=== PATIENT | male | born 1970 | race African-American/Black ===

== ENCOUNTER 2024-09-19 16:53 | Inpatient (IN) ==
--- NOTE | 2024-09-19 17:15 | Emergency Department Note ---
ED DC CONDITION Conditon at Discharge Condition at Discharge: Fair Impression & Plan Syncope and collapse, Cardiac dysrhythmia, Non-ST elevation MA (NSTEMI), Defibrillator discharge ED Provider Note HISTORY OF PRESENT ILLNESS: Patient is a 54-year-old male presenting after an episode of syncope. Patient has a defibrillator in place and he was conducting acquire when he suddenly got shocked 4 times by his defibrillator. Reports that he then passed out, but friends were able to help him to the ground. Patient did not lose consciousness or hit his head. He denies any chest pain or shortness of breath. He reports that he is originally from [place] and the defibrillator was placed after he had passed out on a flight. He is not on any anticoagulation or antiplatelet therapy. Denies any abdominal pain, nausea or vomiting. He reports he feels at his baseline at this time. ROS: as above PHYSICAL EXAM: Constitutional: Patient appears in no acute distress. HENT: Head: Normocephalic and atraumatic. Eyes: EOMI, PERRL Mouth/Throat: Mucous membranes moist. Neck: Trachea midline. Neck supple. Cardiovascular: Tachycardic with regular rhythm. No murmurs, rubs or gallops. Intact distal pulses. Pulmonary/Chest: No respiratory distress. Breath sounds clear and equal bilaterally. No wheezes or rales. Abdominal: Abdomen soft, no tenderness, rebound or guarding. Musculoskeletal: No edema, tenderness or deformity noted. Skin: Warm and dry. No rash, erythema, pallor or cyanosis Psychiatric: Appropriate mood and affect for situation. Neurological: Alert and keenly responsive. CN II-XII grossly intact, moving all extremities equally and fully. MDM: - Vitals signs showed hypertension and tachycardia. - History obtained via patient. History as above. - Chronic conditions affecting care: HTN; HLD; pacemaker in place - Differential diagnoses include, but are not limited to: Acute coronary syndrome; pulmonary embolism; dissection; tension pneumothorax; esophageal rupture; pneumonia; dysrhythmia - Order placed for continuous cardiac monitoring. At this time, monitor showed rate of 100 bpm with normal sinus rhythm, per my interpretation. - External medical records reviewed. - EKG image interpreted by myself showed normal sinus rhythm. Rate tachycardic at 113 bpm. QT 364. Noted to have some T wave inversions in the inferior and lateral leads. No previous EKG to compare to. - Laboratory workup interpreted by myself showed normal WBC; normal PT/INR; stable electrolytes; elevated creatinine (Cr 1.48 - unknown baseline); elevated troponin (155.3) - CXR image was reviewed by myself was negative for pneumonia, per my interpretation. Radiology notes bilateral pulmonary vascular markings. - BNP added to orders - Patient significantly hypertensive and tachycardic in the emergency department. He was given 10 mg of IV labetalol, with his heart rate improving down to the low 100s. - Patient's defibrillator was interrogated. Per report, the patient was actually shocked 10 times, with 8 shocks being ineffective. He had 2 successful shocks that broke him out of ventricular tachycardia. - Patient's EKG does appear very abnormal. I did discuss the patient's case with assembler bicycle, Dr. Gray, at 1800. Discussed the patient's device interrogation. He states that without chest pain or history of CAD, he does not think the patient needs to go to the [facility] right now. Would recommend heparinizing overnight and placing the patient on amiodarone. - IV amiodarone bolus and drip initiated. IV heparin drip initiated. - Discussion was had with cyanide case hardener about patient's case and need for admission - Hospitalist, Dr. Owen, consulted for admission - Patient admitted to [facility] service for further evaluation and management. I have personally spent 63 minutes of critical care time in the direct management of this patient. This includes bedside care, interpretation of diagnostic studies, and testing, discussion with consultants, patient, and family members, and other required patient management activities. This 63 minutes is in excess of all separately billable procedures. ASSESSMENT AND PLAN: Diagnosis: Syncope and collapse; cardiac dysrhythmia; NSTEMI; defibrillator discharge Plan: Admit Past Med/Surg History Problem List (Updated 09/19/24 @ 19:27 by Alison Rivas MD) Defibrillator discharge (Acute) Non-ST elevation MA (NSTEMI) (Acute) Cardiac dysrhythmia (Acute) Syncope and collapse (Acute) Social History Smoking Status: Never smoker Preferred Language: Malagasy Feels Safe at Home: Yes Allergies Allergies Allergy/AdvReac Type Severity Reaction Status Date / Time pollen extracts Allergy Congested Verified 09/19/24 19:17 Home Meds Home Medications Medication Instructions Recorded Confirmed amlodipine 5 mg tablet 5 mg PO DAILY 09/19/24 09/19/24 atorvastatin 40 mg tablet 40 mg PO DAILY 09/19/24 09/19/24 metoprolol succinate 25 mg 25 mg PO DAILY 09/19/24 09/19/24 tablet,extended release 24 hr Results & Data (ED) Vital Signs Vital Signs - 24 hr 09/19/24 17:04 09/19/24 17:12 09/19/24 17:50 Temperature 37.2 C Temperature Source Oral Pulse Rate 113 H 113 H Pulse Rate [Apical] 123 H Pulse Rhythm [Apical] Regular Pulse Strength [Apical] Normal Respiratory Rate 18 17 Respiratory Effort / Characteristics Respiratory Depth Blood Pressure 174/93 H Blood Pressure [Right Arm] 207/115 H Blood Pressure Mean 120 Blood Pressure Mean [Right Arm] 145 Blood Pressure Position [Right Arm] Lying Pulse Oximetry 97 97 Oxygen Delivery Method Room Air Room Air Sepsis Recent Fever Within 48 Hours No Sepsis New/Unexplained Change in Mental Status No Sepsis Action Taken by Nursing No Action Required 09/19/24 18:02 09/19/24 18:30 09/19/24 19:09 Temperature Temperature Source Pulse Rate 113 H 100 H Pulse Rate [Apical] 105 H Pulse Rhythm [Apical] Pulse Strength [Apical] Respiratory Rate 20 Respiratory Effort / Characteristics Respiratory Depth Blood Pressure 217/123 H 185/97 H Blood Pressure [Right Arm] 181/98 H Blood Pressure Mean Blood Pressure Mean [Right Arm] 125 Blood Pressure Position [Right Arm] Pulse Oximetry 98 Oxygen Delivery Method Room Air Sepsis Recent Fever Within 48 Hours Sepsis New/Unexplained Change in Mental Status Sepsis Action Taken by Nursing 09/19/24 19:19 Temperature Temperature Source Pulse Rate Pulse Rate [Apical] 99 H Pulse Rhythm [Apical] Regular Pulse Strength [Apical] Normal Respiratory Rate 16 Respiratory Effort / Characteristics Non-Labored Spontaneous Respiratory Depth Normal Blood Pressure Blood Pressure [Right Arm] 160/104 H Blood Pressure Mean Blood Pressure Mean [Right Arm] 122 Blood Pressure Position [Right Arm] Lying Pulse Oximetry 98 Oxygen Delivery Method Room Air Sepsis Recent Fever Within 48 Hours Sepsis New/Unexplained Change in Mental Status Sepsis Action Taken by Nursing Laboratory Data 09/19/24 17:06 09/19/24 17:06 Lab Results 09/19/24 09/19/24 Range/Units 17:06 18:15 WBC 7.80 (4.8-10.8) K/ul RBC 5.61 (4.70-6.10) M/uL Hgb 14.8 (14.0-18.0) g/dl Hct 45.5 (42.0-52.0) % MCV 81.1 (80.0-100.0) fL MCH 26.4 (25.0-34.0) pg MCHC 32.5 (32.0-36.0) g/dL RDW Std Deviation 41.2 (36.4-46.3) fL RDW Coeff of Margarette 14.0 (11.5-14.5) % Plt Count 201 (130-400) K/uL MPV 11.9 (9.4-12.4) fL Immature Gran % (Auto) 0.3 % Neut % (Auto) 51.6 % Lymph % (Auto) 31.9 % [place] % (Auto) 11.0 % Eos % (Auto) 4.6 % Baso % (Auto) 0.6 % Neut # (Auto) 4.02 (1.40-6.50) K/uL Lymph # (Auto) 2.49 (1.20-3.40) K/uL [place] # (Auto) 0.86 H (0.11-0.59) K/uL Eos # (Auto) 0.36 (0.00-0.50) K/uL Baso # (Auto) 0.05 (0.00-0.20) K/uL Immature Gran # (Auto) 0.02 (0.01-0.20) K/uL PT Cancelled 10.9 INR Cancelled 1.0 Sodium 141 (136-145) mmol/L Potassium 3.6 (3.5-5.1) mmol/L Chloride 108 H (98-107) mmol/L Carbon Dioxide 28 (21-32) mmol/L Anion Gap 5 (3-11) BUN 20 (6-23) mg/dl Creatinine 1.48 H (0.6-1.4) mg/dl Est Cr Clr Drug Dosing 60.1 ml/min eGFR 56.57 BUN/Creatinine Ratio 13.5 (10-20) Glucose 116 H (70-99(Fasting)) mg/dl Calcium 9.3 (8.6-10.3) mg/dl Magnesium 2.0 (1.7-2.4) mg/dl Total Bilirubin 0.8 (0.2-1.0) mg/dl AST 27 (13-39) U/L ALT 12 (7-52) U/L Alkaline Phosphatase 53 (34-104) U/L Troponin I High Sens 155.3 H* (0-20) pg/ml Total Protein 8.4 H (6.0-8.3) gm/dl Albumin 4.1 (3.4-5.0) gm/dl Globulin 4.3 H (2.5-4.0) gm/dl Albumin/Globulin Ratio 1.0 (0.9-2) Lipase 9 L (11-82) U/L Administered Medications Amiodarone HCl/Dextrose (Nexterone / D5w) 360 mg in 200 mls @ 33.333 mls/hr IV ONE ONE Stop: 09/20/24 01:05 Last Admin: 09/19/24 19:08 Dose: 1 mg/min, 33.3 mls/hr Documented By: FREDY Co-signed By: SAMANTHA Discontinued Medications Amiodarone HCl (Amiodarone Iv Bolus & Drip) 1 each IV NOW STA; Protocol Stop: 09/19/24 18:56 Last Admin: 09/19/24 19:09 Dose: 1 each Documented By: FREDY Amiodarone HCl/Dextrose (Nexterone / D5w) 150 mg in 100 mls @ 600 mls/hr IV NOW STA Stop: 09/19/24 19:04 Last Admin: 09/19/24 19:08 Dose: 600 mls/hr Documented By: FREDY Co-signed By: SAMANTHA Labetalol HCl (Labetalol Hcl Iv 5 Mg/Ml 20ml) 10 mg IV NOW STA Stop: 09/19/24 17:59 Last Admin: 09/19/24 18:02 Dose: 10 mg Documented By: MILE Miscellaneous (Stat Iv Infusion Titration Per Protocol) 1 each N/A NOW STA Stop: 09/19/24 18:56 Last Admin: 09/19/24 19:09 Dose: 1 each Documented By: FREDY Imaging Data Radiologist's Impression: Chest X-Ray 09/19/24 17:06 EXAM: XR chest 1V portable CLINICAL HISTORY: Chest pain, nonspecific. TECHNIQUE: Chest X-ray was obtained in PA projection. COMPARISON: No prior studies available for comparison. FINDINGS: Pulmonary Parenchyma: Bilateral exaggerated pulmonary vascular markings with left lower lung zone and left costodiaphragmatic recess veiling. No evidence of pleural effusion or pleural thickening. Heart and Mediastinum: Cardiomegaly is noted. No mediastinal widening or masses. No hilar or mediastinal lymphadenopathy. ICD is seen in situ. Bony Thorax: Bony thorax appears intact without fractures or deformities. Soft Tissues: Soft tissues overlying the chest wall are unremarkable. IMPRESSION: 1. Bilateral exaggerated pulmonary vascular markings with left lower lung zone and left costodiaphragmatic recess veiling for correlation with clinical data. 2. Cardiomegaly. Electronically signed by Naresh Velasco 09-19-2024 7:05 PM Discharge Plan Visit Data Chief Complaint: Syncope Stated Complaint: SYNCOPE ED Provider: Alison Rivas Discharge Problem: Syncope and collapse, Cardiac dysrhythmia, Non-ST elevation MA (NSTEMI), Defibrillator discharge Patient Disposition: Admitted As Inpatient Condition: Fair Forms Stand Alone Forms: [facility] Prescriptions Prescriptions: No Action atorvastatin 40 mg tablet 40 mg PO DAILY Rx Instructions: KELLY OUT OF MED amlodipine 5 mg tablet 5 mg PO DAILY metoprolol succinate 25 mg tablet extended release 24 hr 25 mg PO DAILY Referrals Referrals: PCP,NO [Physician] -
[2024-09-19 17:25] LABS: Basophils # (auto) 0.05 K/uL (0.00-0.20); Basophils % (auto) 0.6 %; Eosinophils # (auto) 0.36 K/uL (0.00-0.50); Eosinophils % (auto) 4.6 %; Hematocrit (blood only) 45.5 % (42.0-52.0); Hemoglobin 14.8 g/dl (14.0-18.0); Immature Granulocytes # (auto) 0.02 K/uL (0.01-0.20); Immature Granulocytes % (auto) 0.3 %; Lymphocytes # (auto) 2.49 K/uL (1.20-3.40); Lymphocytes % (auto) 31.9 %; Mean Corpuscular Hemoglobin 26.4 pg (25.0-34.0); Mean Corpuscular Hgb Conc 32.5 g/dL (32.0-36.0); Mean Corpuscular Volume 81.1 fL (80.0-100.0); Mean Platelet Volume 11.9 fL (9.4-12.4); Monocytes # (auto) 0.86 K/uL (0.11-0.59); Neutrophils # (auto) 4.02 K/uL (1.40-6.50); Neutrophils % (auto) 51.6 %; Platelet Count 201 K/uL (130-400); RDW Standard Deviation 41.2 fL (36.4-46.3); Red Blood Count 5.61 M/uL (4.70-6.10)
[2024-09-19 17:44] LABS: Albumin Level 4.1 gm/dl (3.4-5.0); BUN Creatinine Ratio 13.5 (10-20); Bilirubin,Total 0.8 mg/dl (0.2-1.0); Calcium 9.3 mg/dl (8.6-10.3); Creatinine Clr Calc Pharmacy 60.1 ml/min; Globulin 4.3 gm/dl (2.5-4.0); Potassium 3.6 mmol/L (3.5-5.1); Total Protein 8.4 gm/dl (6.0-8.3)
[2024-09-19 17:54] LABS: Troponin I High Sensitivity 155.3 pg/ml (0-20)
[2024-09-19] MEDS: LABETALOL HCL IV 5 MG/ML 20ML IV STA (18:02)
[2024-09-19 18:53] LABS: Prothrombin Time 10.9 Seconds (9.0-12.0)
[2024-09-19] MEDS ORDERED: 0.2 MICRON FILTER SET 1 EACH IV STA (18:55)
--- NOTE | 2024-09-19 19:06 | XRay Report ---
EXAM: XR chest 1V portable CLINICAL HISTORY: Chest pain, nonspecific. TECHNIQUE: Chest X-ray was obtained in PA projection. COMPARISON: No prior studies available for comparison. FINDINGS: Pulmonary Parenchyma: Bilateral exaggerated pulmonary vascular markings with left lower lung zone and left costodiaphragmatic recess veiling. No evidence of pleural effusion or pleural thickening. Heart and Mediastinum: Cardiomegaly is noted. No mediastinal widening or masses. No hilar or mediastinal lymphadenopathy. ICD is seen in situ. Bony Thorax: Bony thorax appears intact without fractures or deformities. Soft Tissues: Soft tissues overlying the chest wall are unremarkable. IMPRESSION: 1. Bilateral exaggerated pulmonary vascular markings with left lower lung zone and left costodiaphragmatic recess veiling for correlation with clinical data. 2. Cardiomegaly. Electronically signed by Naresh Velasco 09-19-2024 7:05 PM
[2024-09-19] MEDS: AMIODARONE / D5W 150 MG/100 ML BAG IV STA (19:08)
[2024-09-19] MEDS: AMIODARONE / D5W 360 MG/200 ML BAG IV ONE (19:08)
[2024-09-19] MEDS: AMIODARONE IV BOLUS & DRIP IV STA (19:09)
[2024-09-19] MEDS: STAT IV Infusion **Titration per Protocol STA (19:09)
[2024-09-19] MEDS: POTASSIUM CHLORIDE CRTAB 20 MEQ TABCR PO STA (19:56)
[2024-09-19] MEDS: METOPROLOL SUCC 25MG EXT REL TAB PO STA (19:56)
[2024-09-19] MEDS: HEPARIN 25000 UNIT/500 ML D5W 25,000 UNITS/500 ML BAG IV SCH (19:56)
[2024-09-19] MEDS: Heparin IV Adult Wt-Based Standard *NO* INITIAL Bolus Protocol IV STA (19:57)
--- NOTE | 2024-09-19 20:24 | History & Physical Report ---
Date of Service September 19, 2024 Assessment & Plan (1) Defibrillator discharge: Plan: ICD shocks History of HOCM status post ICD VF with failed ATP, paroxysmal atrial flutter on initial ICD device report Hypertensive urgency ARF, unknown duration hyperglycemia rule out DM Admit to PCU TTE, Cardiology consult re: ICD shock, PAfl (ER provider read in touch with Dr. Gray who recommended IV amiodarone and heparin infusion Rx.) N.p.o. after midnight in anticipation of procedure. Titrate home BP meds Baseline UA, monitor creatinine response to IVF Check hemoglobin A1c DVT prophylaxis. IV heparin Full code Text document was generated using SiteJabber voice recognition software. It may contain grammatical or spelling errors. Kindly contact undersigned for clarification of any documentation item in question. History of Present Illness Primary Care Provider: PCP : Dr. MEGAN MARRERO Damascener : Dr. Raoul Kidd History obtained from patient and records. Medical history significant for HOCM status post ICD, hypertension. Patient is a resident of [place], [place] who arrived in town yesterday to participate in a choir competition this weekend. Fatigue symptoms from travel and having to waste picker some competition participants whose vehicle broke down along the highway. Patient was at choir practice today when he felt his ICD device shocked him multiple times. Mild achy chest pain from shock. Denies headache, SOB. Near syncope episode. No prior episodes. VF and atrial flutter, SVT episodes on initial ICD interrogation. IV heparin and amiodarone infusions initiated at the ER following cardiology recommendations. Medical History as above Surgical History : ICD Family History : No heart disease, no DM, no stroke, no blood clot Personal/Social history : Non-smoker, occasional EtOH intake, auto electrician Allergies Allergy/AdvReac Type Severity Reaction Status Date / Time pollen extracts Allergy Congested Verified 09/19/24 19:17 Home Medications Medication Instructions Recorded Confirmed Type amlodipine 5 mg tablet 5 mg PO DAILY 09/19/24 09/19/24 History atorvastatin 40 mg tablet 40 mg PO DAILY 09/19/24 09/19/24 History metoprolol succinate 25 mg 25 mg PO DAILY 09/19/24 09/19/24 History tablet,extended release 24 hr Past Med/Surg History Problem List (Updated 09/19/24 @ 19:27 by Alison Rivas MD) Defibrillator discharge (Acute) Non-ST elevation IA (NSTEMI) (Acute) Cardiac dysrhythmia (Acute) Syncope and collapse (Acute) Social History Smoking Status: Never smoker Hx Alcohol Use: No Hx Substance Use: No Preferred Language: Mohawk Communication Ability: Effective Statement Services Representative Required: No Beliefs That Will Affect Care: None Current Living Situation: Spouse Feels Safe at Home: Yes Safety Concerns: Feels Safe At This Time Assistive Devices: None Review of Systems Review of Systems: As per HPI, all other systems reviewed and negative Physical Exam Physical Exam: GENERAL: Comfortable, n obese, pleasant, o respiratory distress SKIN: Normal color, warm HEENT: [place] palpebral conjunctivae, no ptosis, dry buccal mucosa NECK : Supple, no tenderness CHEST : CTA, no tenderness HEART : RRR, systolic murmur ABDOMEN: Some distention, nontender EXTREMITIES : No LE swelling/tenderness, palpable pulses, no other conspicuous deformities noted NEUROLOGIC : Coherent, no facial asymmetry, no other gross focality Results & Data Results & Data Vital Signs (Past 12 Hours) Vital Signs Temp Pulse Pulse Resp BP BP Pulse Ox 09/19/24 20:02 94 H 16 184/103 H 98 09/19/24 19:19 99 H 16 160/104 H 98 09/19/24 19:09 100 H 185/97 H 09/19/24 18:30 105 H 20 181/98 H 98 09/19/24 18:02 113 H 217/123 H 09/19/24 17:50 123 H 17 207/115 H 97 09/19/24 17:12 37.2 C 113 H 18 174/93 H 97 09/19/24 17:04 113 H O2 Del Method 09/19/24 20:02 Room Air 09/19/24 19:19 Room Air 09/19/24 19:09 09/19/24 18:30 Room Air 09/19/24 18:02 09/19/24 17:50 Room Air 09/19/24 17:12 Room Air 09/19/24 17:04 Laboratory Results Laboratory Results WBC 7.80 K/ul (4.8-10.8) 09/19/24 17:06 RBC 5.61 M/uL (4.70-6.10) 09/19/24 17:06 Hgb 14.8 g/dl (14.0-18.0) 09/19/24 17:06 Hct 45.5 % (42.0-52.0) 09/19/24 17:06 MCV 81.1 fL (80.0-100.0) 09/19/24 17:06 MCH 26.4 pg (25.0-34.0) 09/19/24 17:06 MCHC 32.5 g/dL (32.0-36.0) 09/19/24 17:06 RDW Std Deviation 41.2 fL (36.4-46.3) 09/19/24 17:06 RDW Coeff of Margarette 14.0 % (11.5-14.5) 09/19/24 17:06 Plt Count 201 K/uL (130-400) 09/19/24 17:06 MPV 11.9 fL (9.4-12.4) 09/19/24 17:06 Immature Gran % (Auto) 0.3 % 09/19/24 17:06 Neut % (Auto) 51.6 % 09/19/24 17:06 Lymph % (Auto) 31.9 % 09/19/24 17:06 [place] % (Auto) 11.0 % 09/19/24 17:06 Eos % (Auto) 4.6 % 09/19/24 17:06 Baso % (Auto) 0.6 % 09/19/24 17:06 Neut # (Auto) 4.02 K/uL (1.40-6.50) 09/19/24 17:06 Lymph # (Auto) 2.49 K/uL (1.20-3.40) 09/19/24 17:06 [place] # (Auto) 0.86 K/uL (0.11-0.59) H 09/19/24 17:06 Eos # (Auto) 0.36 K/uL (0.00-0.50) 09/19/24 17:06 Baso # (Auto) 0.05 K/uL (0.00-0.20) 09/19/24 17:06 Immature Gran # (Auto) 0.02 K/uL (0.01-0.20) 09/19/24 17:06 PT 10.9 Seconds (9.0-12.0) 09/19/24 18:15 INR 1.0 (0.9-1.1) 09/19/24 18:15 Sodium 141 mmol/L (136-145) 09/19/24 17:06 Potassium 3.6 mmol/L (3.5-5.1) 09/19/24 17:06 Chloride 108 mmol/L (98-107) H 09/19/24 17:06 Carbon Dioxide 28 mmol/L (21-32) 09/19/24 17:06 Anion Gap 5 (3-11) 09/19/24 17:06 BUN 20 mg/dl (6-23) 09/19/24 17:06 Creatinine 1.48 mg/dl (0.6-1.4) H 09/19/24 17:06 Est Cr Clr Drug Dosing 60.1 ml/min 09/19/24 17:06 eGFR 56.57 09/19/24 17:06 BUN/Creatinine Ratio 13.5 (10-20) 09/19/24 17:06 Glucose 116 mg/dl (70-99(Fasting)) H 09/19/24 17:06 Calcium 9.3 mg/dl (8.6-10.3) 09/19/24 17:06 Magnesium 2.0 mg/dl (1.7-2.4) 09/19/24 17:06 Total Bilirubin 0.8 mg/dl (0.2-1.0) 09/19/24 17:06 AST 27 U/L (13-39) 09/19/24 17:06 ALT 12 U/L (7-52) 09/19/24 17:06 Alkaline Phosphatase 53 U/L (34-104) 09/19/24 17:06 Troponin I High Sens 350.8 pg/ml (0-20) H* D 09/19/24 18:16 B-Natriuretic Peptide 488 pg/ml (0-100) H 09/19/24 18:16 Total Protein 8.4 gm/dl (6.0-8.3) H 09/19/24 17:06 Albumin 4.1 gm/dl (3.4-5.0) 09/19/24 17:06 Globulin 4.3 gm/dl (2.5-4.0) H 09/19/24 17:06 Albumin/Globulin Ratio 1.0 (0.9-2) 09/19/24 17:06 Lipase 9 U/L (11-82) L 09/19/24 17:06 Impressions Chest X-Ray 09/19/24 17:06 EXAM: XR chest 1V portable CLINICAL HISTORY: Chest pain, nonspecific. TECHNIQUE: Chest X-ray was obtained in PA projection. COMPARISON: No prior studies available for comparison. FINDINGS: Pulmonary Parenchyma: Bilateral exaggerated pulmonary vascular markings with left lower lung zone and left costodiaphragmatic recess veiling. No evidence of pleural effusion or pleural thickening. Heart and Mediastinum: Cardiomegaly is noted. No mediastinal widening or masses. No hilar or mediastinal lymphadenopathy. ICD is seen in situ. Bony Thorax: Bony thorax appears intact without fractures or deformities. Soft Tissues: Soft tissues overlying the chest wall are unremarkable. IMPRESSION: 1. Bilateral exaggerated pulmonary vascular markings with left lower lung zone and left costodiaphragmatic recess veiling for correlation with clinical data. 2. Cardiomegaly. Electronically signed by Naresh Velasco 09-19-2024 7:05 PM Diagnostic Findings EKG as per my interpretation :Rate 115, sinus tachycardia, LAD, LAFB, LVH, inferior infarct, T wave inversion, inferior and anterolateral leads
[2024-09-19] MEDS ORDERED: PROMETHAZINE 6.25 MG/50.25 ML BAG IV PRN (20:27)
[2024-09-19] MEDS ORDERED: LORazepam 0.5 MG TAB PO PRN (20:27)
[2024-09-19] MEDS ORDERED: oxyCODONE HCL IR 5 MG TAB (IMMEDIATE RELEASE) PO PRN (20:27)
[2024-09-19] MEDS ORDERED: NITROGLYCERIN SL 0.4 MG/TAB TAB SL PRN (20:27)
[2024-09-19 21:14] LABS: Estimated Average Glucose 117 mg/dl; Hemoglobin A1C 5.7 % (4.5-5.6)
[2024-09-19] MEDS: ALBUMIN 25% 12.5 GM/50 ML VIAL IV ONE (22:03)
[2024-09-20] MEDS: AMIODARONE / D5W 360 MG/200 ML BAG IV SCH (01:26)
[2024-09-20] MEDS: METOPROLOL SUCC 25MG EXT REL TAB PO STA (01:59)
[2024-09-20 02:31] LABS: Appearance Urine Clear (Clear); Bacteria Urine Automated None Seen (None Seen); Bilirubin Urine Negative (Negative); Blood Urine 2+ (Negative); Cast Urine Automated 0-2 /lpf (0-2); Color Urine Yellow; Epithelial Cell Urine Auto 0-2 /hpf (0-2); Glucose Urine UA Negative (Negative); Ketones Urine Negative (Negative); Leukocyte Esterase Urine Negative (Negative); Nitrite Urine Negative (Negative); Protein Urine 1+ (Negative); Specific Gravity Urine 1.016 (1.000-1.030); Urobilinogen Urine Negative (Negative); WBC Urine Automated 0-5 /hpf (0-5)
[2024-09-20 03:16] LABS: ANTI-Xa, UFH(UnfractionatedHep 0.37 IU/ml (0.3-0.7)
[2024-09-20 06:44] LABS: Basophils # (auto) 0.06 K/uL (0.00-0.20); Basophils % (auto) 0.6 %; Eosinophils # (auto) 0.64 K/uL (0.00-0.50); Eosinophils % (auto) 6.4 %; Hematocrit (blood only) 44.7 % (42.0-52.0); Hemoglobin 14.6 g/dl (14.0-18.0); Immature Granulocytes # (auto) 0.02 K/uL (0.01-0.20); Immature Granulocytes % (auto) 0.2 %; Lymphocytes # (auto) 3.22 K/uL (1.20-3.40); Lymphocytes % (auto) 32.3 %; Mean Corpuscular Hemoglobin 26.7 pg (25.0-34.0); Mean Corpuscular Hgb Conc 32.7 g/dL (32.0-36.0); Mean Corpuscular Volume 81.7 fL (80.0-100.0); Mean Platelet Volume 12.5 fL (9.4-12.4); Monocytes # (auto) 0.96 K/uL (0.11-0.59); Monocytes % (auto) 9.6 %; Neutrophils # (auto) 5.08 K/uL (1.40-6.50); Neutrophils % (auto) 50.9 %; Platelet Count 181 K/uL (130-400); RDW Coefficient of Variation 14.3 % (11.5-14.5); RDW Standard Deviation 42.2 fL (36.4-46.3); Red Blood Count 5.47 M/uL (4.70-6.10); White Blood Count 9.98 K/ul (4.8-10.8)
[2024-09-20 07:06] LABS: BUN Creatinine Ratio 14.4 (10-20); Calcium 9.2 mg/dl (8.6-10.3); Creatinine Clr Calc Pharmacy 70.6 ml/min; Potassium 3.8 mmol/L (3.5-5.1)
[2024-09-20 07:07] LABS: ANTI-Xa, UFH(UnfractionatedHep 0.46 IU/ml (0.3-0.7)
[2024-09-20 07:15] LABS: Troponin I High Sensitivity 1173.6 pg/ml (0-20)
[2024-09-20] MEDS ORDERED: METOPROLOL SUCC 25MG EXT REL TAB PO SCH ×2 (09:00→21:00)
[2024-09-20] MEDS: ATORVASTATIN 40 MG TAB PO SCH (09:14)
[2024-09-20] MEDS: amLODIPine BESYLATE 5 MG TAB PO SCH (09:14)
[2024-09-20] MEDS: LABETALOL HCL IV 5 MG/ML 20ML IV PRN (12:30)
--- NOTE | 2024-09-20 14:36 | Hospitalist Progress Note ---
Date of Service September 20, 2024 Assessment & Plan (1) Defibrillator discharge: Plan: 54-year-old male with PMH of HOCM status post ICD, HTN who was in the town to participate in a choir competition this weekend and because of this was apparently fatigued and tired presented with complaint of ICD firing multiple times and mild achy chest pain from shock. Patient denied any headache or shortness of breath or near syncope episodes. VF and atrial flutter, SVT epis odes noted on initial ICD interrogation. IV heparin and amiodarone infusion initiated at the ED following cardiology recommendation. He is being managed for the following: SVT Rule out ACS, ??NSTEMI vs elevated troponin iso SVT History of HOCM status post ICD Patient comes in with complaint of ICD firing multiple times and mild achy chest pain from shock. VF with failed ATP, paroxysmal atrial flutter on initial ICD device report Troponin elevated and up trended. EKG with concern of possible anterolateral subendocardial injury. Pt w/ no chest pain Cardiology on board, currently on amiodarone and heparin drip. Discussed with cardiology, likely SVT and very low suspicion for ACS, EP to evaluate him later in the day and possibly adjust his device settings/transition to p.o. amiodarone. Await further cardio eval. Await echo results. Hypertensive urgency: Elevated blood pressure at presentation in the setting of acute distress. See above. Currently blood pressure getting better,. On blood pressure medication for SBP greater than 170. Likely acute renal failure: Elevated creatinine at 1.48 at presentation. Creatinine resolved to 1.25 the following day. likely pre-renal, s/p ivf in ED. Prediabetes: A1c of 5.7, encourage lifestyle modification, repeat A1c in 3 months. DVT prophylaxis. IV heparin Full code Text document was generated using OpenSesame voice recognition software. It may contain grammatical or spelling errors. Kindly contact undersigned for clarification of any documentation item in question. Admission and Anticipated Discharge Date Admission Date: September 19, 2024 Subjective Patient was seen and examined at bedside. Patient was lying in bed, on room air, NAD, resting comfortably. Patient denies any chest pain, denies nausea or vomiting, denies any recent flulike illness. Physical Exam Physical Exam: GENERAL: Comfortable, obese, pleasant, no respiratory distress SKIN: Normal color, warm HEENT: [place] palpebral conjunctivae, no ptosis, moist buccal mucosa NECK : Supple, no tenderness CHEST : CTA, no tenderness HEART : RRR, systolic murmur ABDOMEN: Some distention, nontender EXTREMITIES : No LE swelling/tenderness, palpable pulses, no other conspicuous deformities noted NEUROLOGIC : Coherent, no facial asymmetry, no other gross focality Results & Data Results & Data Vital Signs (Past 12 Hours) Vital Signs Temp Pulse Pulse Resp BP BP Pulse Ox 09/20/24 13:31 81 167/88 H 09/20/24 12:30 79 176/92 H 09/20/24 12:01 36.7 C 79 18 176/92 H 94 09/20/24 09:43 74 09/20/24 08:13 36.8 C 73 20 160/82 H 96 09/20/24 03:11 37.3 C 74 16 135/72 96 O2 Del Method 09/20/24 13:31 09/20/24 12:30 09/20/24 12:01 Room Air 09/20/24 09:43 09/20/24 08:13 Room Air 09/20/24 03:11 Room Air
--- NOTE | 2024-09-20 18:00 | XCELERA ---
[id number] \\[email or web address]\[id number]
--- NOTE | 2024-09-20 18:08 | Cardiology Consultation ---
Date of Consultation September 20, 2024 Assessment & Plan (1) Defibrillator discharge: (2) Cardiac dysrhythmia: (3) HOCM (hypertrophic obstructive cardiomyopathy): Plan 1. Cardiac dysrhythmia: A review of the intracardiac electrograms suggest that he had an atrial arrhythmia resulting in high ventricular rates. This was initially identified as a sinus tachycardia but the rate increased to the VF therapy zone and he eventually received therapy. The arrhythmia appears most consistent with an ectopic atrial tachycardia. Atrial flutter could be entertained, but there is significant variability in the cycle length of the atrial arrhythmia. VAAV events as well as what appears to be a narrow complex rhythm similar to sinus on far field electrogram excludes a ventricular arrhythmia. Interrogation of his device reveals that he has had similar arrhythmias in the past although a brief duration. Electrograms were available from events in September and November 2023. In order to reduce the chance of recurrent arrhythmia we will increase his beta-cande and start him on antiarrhythmic therapy. Given his young age and cardiomyopathy the ideal antiarrhythmic is sotalol. However the patient needs to return home in short order and there is no time for inpatient titration/monitoring. Disopyramide appears unattractive given its propensity to accelerate AV conduction and relatively mild outflow tract gradient. As such amiodarone was initiated. 2. Defibrillator therapy: The patient received therapy for an atrial arrhythmia. The device was reprogrammed to a higher detection rate for ventricular fibrillation. A VT zone was also activated with discriminators in the hopes of preventing additional therapy for the same arrhythmia. 3. Hypertrophic cardiomyopathy: Initial episode of syncope possibly related to HCM. Since that time the patient denies symptoms or events. He did not report any specific exertional symptoms or intolerances. He is maintained on beta- blockade. History of Present Illness Reason for Consultation: Defibrillator therapy Requesting Physician: Amaris Attending Physician: Chau Ricci MD History of Present Illness The patient is a 54-year-old gentleman with a known history of hypertrophic cardiomyopathy and prior implantation of a single-chamber Biotronik ICD who presented to the emergency room after receiving several therapies from his device. 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 This occurred multiple times. The patient was subsequently brought to the hospital for an evaluation. He reports feeling well otherwise yesterday. He did not have symptoms leading up to the event. He specifically denied any sense of palpitation or dizziness. He had been performing his usual activity that day. No symptoms of chest discomfort. Subsequent to the device therapy he had no additional symptoms. He did not lose consciousness. He has never had therapy from his device previously. He is generally unaware of any palpitations or fast heart rates. He does not seem to have symptoms associated with hypertrophic cardiomyopathy. It seems that approximately 3 years ago he suffered a syncopal episode on an airplane. Upon landing he was brought to a hospital where diagnosis of hypertrophic cardiomyopathy was made. Patient was started on medical therapy and shortly afterwards underwent implantation of his defibrillator. He cannot recall symptoms leading up to his episode of syncope. He did not recall other episodes of syncope. He does not believe any family members have hypertrophic cardiomyopathy. Allergies Allergy/AdvReac Type Severity Reaction Status Date / Time pollen extracts Allergy Congested Verified 09/19/24 19:17 Home Medications Medication Instructions Recorded Confirmed Type amlodipine 5 mg tablet 5 mg PO DAILY 09/19/24 09/19/24 History atorvastatin 40 mg tablet 40 mg PO DAILY 09/19/24 09/19/24 History metoprolol succinate 25 mg 25 mg PO DAILY 09/19/24 09/19/24 History tablet,extended release 24 hr amiodarone 200 mg tablet 400 mg (2 x 200 mg) PO UD #70 tabs 09/20/24 Rx metoprolol succinate 50 mg 50 mg PO BID #60 tabs 09/20/24 Rx tablet,extended release 24 hr Patient History Social History Smoking Status: Never smoker Hx Alcohol Use: No Hx Substance Use: No Preferred Language: Tajik 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 Mood and affect appeared normal. He answered all questions appropriately. HEENT: Pupils are equal and reactive to light and accommodation. Extraocular movements are intact. The sclerae are anicteric. Neuro: Cranial nerves intact Lungs: Clear to auscultation bilaterally. He has good air movement without use of accessory muscles. No rales wheezes or rhonchi. Cardiac: Heart demonstrates a regular rate and rhythm. Normal S1 and S2. Crescendo systolic murmur heard best on the left axilla. Pulses: The patient has palpable radial pulses bilaterally that are equal in intensity Extremities: There was no evidence of hypoperfusion. There is no cyanosis or clubbing. There is no edema. Skin: I did not appreciate any rashes on examination today. Results & Data Vital Signs (Past 12 Hours) Vital Signs Temp Pulse Pulse Resp BP BP Pulse Ox 09/20/24 15:46 36.7 C 76 18 164/78 H 98 09/20/24 14:40 76 09/20/24 13:31 81 167/88 H 09/20/24 12:30 79 176/92 H 09/20/24 12:01 36.7 C 79 18 176/92 H 94 09/20/24 09:43 74 09/20/24 08:13 36.8 C 73 20 160/82 H 96 O2 Del Method 09/20/24 15:46 Room Air 09/20/24 14:40 09/20/24 13:31 09/20/24 12:30 09/20/24 12:01 Room Air 09/20/24 09:43 09/20/24 08:13 Room Air Laboratory Results Abnormal Lab Results 09/19/24 09/19/24 09/20/24 18:16 19:00 01:57 WBC RBC Hgb Hct MCV MCH MCHC RDW Std Deviation RDW Coeff of Margarette Plt Count MPV Immature Gran % (Auto) Neut % (Auto) Lymph % (Auto) Caroline % (Auto) Eos % (Auto) Baso % (Auto) Neut # (Auto) Lymph # (Auto) Caroline # (Auto) Eos # (Auto) Baso # (Auto) Immature Gran # (Auto) Heparin Anti-Xa, Unfract 0.37 Sodium Potassium Chloride Carbon Dioxide Anion Gap BUN Creatinine Est Cr Clr Drug Dosing eGFR BUN/Creatinine Ratio Glucose Estimat Average Glucose 117 Hemoglobin A1c 5.7 H Calcium Troponin I High Sens 350.8 H* D TSH 1.186 Urine Color Urine Appearance Urine pH Ur Specific [place] Urine Protein Urine Glucose (UA) Urine Ketones Urine Blood Urine Nitrite Urine Bilirubin Urine Urobilinogen Ur Leukocyte Esterase Urine WBC (Auto) Urine RBC (Auto) U Hyaline Cast (Auto) U Epithel Cells (Auto) Urine Bacteria (Auto) 09/20/24 09/20/24 02:00 05:32 WBC 9.98 RBC 5.47 Hgb 14.6 Hct 44.7 MCV 81.7 MCH 26.7 MCHC 32.7 RDW Std Deviation 42.2 RDW Coeff of Margarette 14.3 Plt Count 181 MPV 12.5 H Immature Gran % (Auto) 0.2 Neut % (Auto) 50.9 Lymph % (Auto) 32.3 Caroline % (Auto) 9.6 Eos % (Auto) 6.4 Baso % (Auto) 0.6 Neut # (Auto) 5.08 Lymph # (Auto) 3.22 Caroline # (Auto) 0.96 H Eos # (Auto) 0.64 H Baso # (Auto) 0.06 Immature Gran # (Auto) 0.02 Heparin Anti-Xa, Unfract 0.46 Sodium 138 Potassium 3.8 Chloride 107 Carbon Dioxide 25 Anion Gap 6 BUN 18 Creatinine 1.25 Est Cr Clr Drug Dosing 70.6 eGFR 69.28 BUN/Creatinine Ratio 14.4 Glucose 109 H Estimat Average Glucose Hemoglobin A1c Calcium 9.2 Troponin I High Sens 1173.6 H* D TSH Urine Color Yellow Urine Appearance Clear Urine pH 6.0 Ur Specific [place] 1.016 Urine Protein 1+ H Urine Glucose (UA) Negative Urine Ketones Negative Urine Blood 2+ H Urine Nitrite Negative Urine Bilirubin Negative Urine Urobilinogen Negative Ur Leukocyte Esterase Negative Urine WBC (Auto) 0-5 Urine RBC (Auto) 3-5 H U Hyaline Cast (Auto) 0-2 U Epithel Cells (Auto) 0-2 Urine Bacteria (Auto) None Seen Diagnostic Findings I performed a complete device interrogation of his single-chamber Biotronik ICD. Normal longevity and normal function of the ICD lead. Echocardiogram performed today revealed small ventricular cavity with severe concentric LVH. Did have mild-moderate mitral regurgitation related to EDITH and an outflow tract gradient of 37 mmHg. PG Care Time/CCT Total # of Minutes Spent Total Time Spent with Patient: Total time spent is greater than 50% in coordination of care (as documented) at patient's floor/unit and/or counseling patient: Coding Level of Care Code 20205 IN/OBS CONSULT LVL 4,60M Diagnoses Defibrillator discharge Z45.02 Cardiac dysrhythmia I49.9 HOCM (hypertrophic obstructive cardiomyopathy) I42.1 CPT Codes Implantable Defib Single Lead Programming - 95243 ([id number]) 26 - PROFESSIONAL COMPONENT
[2024-09-20] MEDS: AMIODARONE 200 MG TAB PO SCH (19:34)
[2024-09-20] MEDS: METOPROLOL SUCC 50MG EXT REL TAB PO SCH (19:34)
--- NOTE | 2024-09-21 01:04 | Electrocardiogram Report ---
Test Reason : Blood Pressure : */* mmHG Vent. Rate : 113 BPM Atrial Rate : 113 BPM P-R Int : 158 ms QRS Dur : 98 ms QT Int : 364 ms P-R-T Axes : 63 68 259 degrees QTcB Int : 499 ms Sinus tachycardia Left ventricular hypertrophy with repolarization abnormality Marked ST abnormality, possible anterolateral subendocardial injury Abnormal ECG No previous ECGs available Confirmed by Flo Gray ([id number]) on 09/21/2024 1:03:42 AM Referred By: REFERRED SELF Confirmed By: Flo Gray
[2024-09-21 04:23] VITALS: BP 123/72; RESP 16; TEMP 97.5; O2SAT 97
[2024-09-21 06:04] LABS: Hematocrit (blood only) 47.1 % (42.0-52.0); Hemoglobin 15.2 g/dl (14.0-18.0); Mean Corpuscular Hemoglobin 26.4 pg (25.0-34.0); Mean Corpuscular Hgb Conc 32.3 g/dL (32.0-36.0); Mean Corpuscular Volume 81.8 fL (80.0-100.0); Mean Platelet Volume 12.1 fL (9.4-12.4); Platelet Count 179 K/uL (130-400); RDW Coefficient of Variation 14.4 % (11.5-14.5); RDW Standard Deviation 42.2 fL (36.4-46.3); Red Blood Count 5.76 M/uL (4.70-6.10); White Blood Count 9.36 K/ul (4.8-10.8)
[2024-09-21 06:22] LABS: BUN Creatinine Ratio 11.4 (10-20); Creatinine Clr Calc Pharmacy 66.8 ml/min; Magnesium 1.9 mg/dl (1.7-2.4); Phosphorus 4.4 mg/dl (2.5-4.9); Potassium 3.9 mmol/L (3.5-5.1)
[2024-09-21 09:36] VITALS: PULSE 68
--- NOTE | 2024-09-21 12:45 | Discharge Summary ---
Date of Service September 21, 2024 Admission HPI Per Admitting Provider History obtained from patient and records. Medical history significant for HOCM status post ICD, hypertension. Patient is a resident of [place], [place] who arrived in town yesterday to participate in a choir competition this weekend. 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 Patient was at choir practice today when he felt his ICD device shocked him multiple times. Mild achy chest pain from shock. Denies headache, SOB. Near syncope episode. No prior episodes. VF and atrial flutter, SVT episodes on initial ICD interrogation. IV heparin and amiodarone infusions initiated at the ER following cardiology recommendations. Medical History as above Surgical History : ICD Family History : No heart disease, no DM, no stroke, no blood clot Personal/Social history : Non-smoker, occasional EtOH intake, auto motor mechanic Admission Exam Per Admitting Provider GENERAL: Comfortable, n obese, pleasant, o respiratory distress SKIN: Normal color, warm HEENT: B[place] palpebral conjunctivae, no ptosis, dry buccal mucosa NECK : Supple, no tenderness CHEST : CTA, no tenderness HEART : RRR, systolic murmur ABDOMEN: Some distention, nontender EXTREMITIES : No LE swelling/tenderness, palpable pulses, no other conspicuous deformities noted NEUROLOGIC : Coherent, no facial asymmetry, no other gross focality Principal Diagnosis SVT Rule out ACS, ??NSTEMI vs elevated troponin iso SVT History of HOCM status post ICD Hypertensive urgency Likely acute renal failure Prediabetes Discharge Exam GENERAL: Comfortable, obese, pleasant, no respiratory distress SKIN: Normal color, warm HEENT: [place] palpebral conjunctivae, no ptosis, moist buccal mucosa NECK : Supple, no tenderness CHEST : CTA, no tenderness HEART : RRR, systolic murmur ABDOMEN: Some distention, nontender EXTREMITIES : No LE swelling/tenderness, palpable pulses, no other conspicuous deformities noted NEUROLOGIC : Coherent, no facial asymmetry, no other gross focality Discharge Data Allergies Allergy/AdvReac Type Severity Reaction Status Date / Time pollen extracts Allergy Congested Verified 09/19/24 19:17 Consultations 09/19/24 19:20 ED Decision to Admit Stat 09/19/24 21:46 Consult Cardiology Routine Hospital Course (1) Defibrillator discharge: 54-year-old male with PMH of HOCM status post ICD, HTN who was in the town to participate in a choir competition this weekend and because of this was apparently fatigued and tired presented with complaint of ICD firing multiple times and mild achy chest pain from shock. Patient denied any headache or shortness of breath or near syncope episodes. VF and atrial flutter, SVT episodes noted on initial ICD interrogation. IV heparin and amiodarone infusion initiated at the ED following cardiology recommendation. He was managed for the following: SVT Rule out ACS, ??NSTEMI vs elevated troponin iso SVT, ruled out nstemi History of HOCM status post ICD Patient comes in with complaint of ICD firing multiple times and mild achy chest pain from shock. VF with failed ATP, paroxysmal atrial flutter on initial ICD device report Troponin elevated and up trended. Cards evaled, dc'd heparin. d/w cardio 09/20 evening, transition amiodarone to 400 mg bid x 10 days, then 200 mg daily; also increase toprol to 50 mg bid. ECHO reviewed. EP adjusted/reprogrammed defib. Hypertensive urgency: Elevated blood pressure at presentation in the setting of acute distress. See above. Currently blood pressure getting better,. On blood pressure medication for SBP greater than 170. Likely acute renal failure: Elevated creatinine at 1.48 at presentation. Creatinine resolved to 1.25 the following day. likely pre-renal, s/p ivf in ED. Prediabetes: A1c of 5.7, encourage lifestyle modification, repeat A1c in 3 months. Pt was updated on this , encouraged lifestyle modification, gaggerman f/u w/ PCP. DVT prophylaxis. IV heparin Full code Patient is being discharged home with following instructions at the point of discharge: Follow-up with your primary care physician within a week time and likely you will need labs CBC/CMP/magnesium/phosphorus. You were evaluated by cardiology inpatient, you are being put in amiodarone (400 mg twice a day x 10 days, then 200 mg daily). Your metoprolol dose is increased to 50 mg bid. Follow up with your cardiology in 2 weeks time upon discharge. Your A1c is 5.7 which means prediabetes. As discussed at the bedside, recommend lifestyle modification/daily exercise regimen/healthy diet. You will need repeat A1c in 3 months. Follow up with your PCP office for gaggerman monitoring. Take your medications as prescribed. Please make sure that you are able to get your medications today by calling your pharmacy before you leave the hospital so that your treatment continuity is not broken. Addendum: RN paged me that patient wants the medications be sent to [facility]. I cannot get the pharmacy in the system for me to E prescribe. I phone called patient's primary contact Amina and patient himself (in his cell phone) to see if they have other pharmacy where I can send the medication to, left voicemail. I also communicated with RN that I cannot E prescribe to this pharmacy and if he can reach out to the family and find out if they have any other pharmacy in mind where I can send the medications to. Text document was generated using Joroto voice recognition software. It may contain grammatical or spelling errors. Kindly contact undersigned for clarification of any documentation item in question. Home Health Attestation I certify that this patient is under my care and that I, or a physicians equal opportunity assistant working with me, had a face to-face encounter that meets the home health [id number] encounter requirements with this patient. The encounter with the patient was in whole, or in part, for the following medical condition, which is the primary reason for home health care (list medical condition): I certify that, based on my findings, the following services are medically necessary home health services: My clinical findings support the need for the above services because: Further, I certify that my clinical findings support that this patient is homebound (i.e. absences from home require considerable and taxing effort and are for medical reasons or adventist services or infrequently or of short duration when for other reasons) because: Certification for Home Health Services: Based on the above findings, I certify that this patient is confined to the home and needs intermittent halfway care, physical therapy and/or speech therapy or continues to need occupational therapy. The patient is under my care, and I have initiated the establishment of the plan of care. This patient will be followed by a physician who will periodically review the plan of care. Total Time Total Time Spent Total Time Spent (In Minutes): 35 Discharge Plan Discharge Items Patient Disposition: Home - Self-Care Reason For Visit: VT Discharge Diagnosis: SVT Rule out ACS, ??NSTEMI vs elevated troponin iso SVT History of HOCM status post ICD Hypertensive urgency Likely acute renal failure Prediabetes Condition on Discharge: Fair Activity: Resume your previous activity Non-emergency contact: Primary Care Provider Call non-emergency contact if: you have any medication questions and your symptoms worsen Follow-up/Referrals: Harjit Bo MD [Primary Care Provider] - Diet: Heart Healthy Addtl Attending Provider Instructions: Follow-up with your primary care physician within a week time and likely you will need labs CBC/CMP/magnesium/phosphorus. You were evaluated by cardiology inpatient, you are being put in amiodarone (400 mg twice a day x 10 days, then 200 mg daily). Your metoprolol dose is increased to 50 mg bid. Follow up with your cardiology in 2 weeks time upon discharge. Your A1c is 5.7 which means prediabetes. As discussed at the bedside, recommend lifestyle modification/daily exercise regimen/healthy diet. You will need repeat A1c in 3 months. Follow up with your PCP office for gaggerman monitoring. Take your medications as prescribed. Please make sure that you are able to get your medications today by calling your pharmacy before you leave the hospital so that your treatment continuity is not broken. Pending Studies at Discharge: No Stand-Alone Forms: [facility], Smoking Cessation Medications and DC Order Prescriptions: New amiodarone 200 mg Tablet 400 mg PO UD Qty: 70 0RF Rx Instructions: 400 mg twice a day for 10 days then 200 mg daily thereafter. metoprolol succinate 50 mg Tablet Extended Release 24 Hr 50 mg PO BID Qty: 60 0RF Continued atorvastatin 40 mg tablet 40 mg PO DAILY Rx Instructions: CURRENLTY OUT OF MED amlodipine 5 mg tablet 5 mg PO DAILY No Action metoprolol succinate 25 mg tablet extended release 24 hr 25 mg PO DAILY Discharge Orders: Discharge Order (Routine); Ordered 09/21/24 Ordered By: Chau Ricci Admission Data Admit Date/Time: 09/19/24 20:26 Attending Provider: Chau Ricci Admit Provider: Chris Owen Primary Care Provider: Harjit Bo Other Providers: Chris Owen; Flo Gray Other Interventions: Discharge Summary Assessment (RN) Last Done: 09/21/24 09:35
== END 2024-09-21 09:55 | disposition home or self-care (01) | DRG 280 ==
LOC: ED 16:53 → 2E 20:26
DX: N17.9 Acute kidney failure, unspecified; Z79.899 Other long term (current) drug therapy; I47.20 Ventricular tachycardia, unspecified; I21.3 ST elevation (STEMI) myocardial infarction of unspecified site; I48.92 Unspecified atrial flutter; Z86.79 Personal history of other diseases of the circulatory system; R73.03 Prediabetes; I16.0 Hypertensive urgency; I49.01 Ventricular fibrillation; Z68.30 Body mass index [BMI] 30.0-30.9, adult; E66.9 Obesity, unspecified; Z95.810 Presence of automatic (implantable) cardiac defibrillator